=== PATIENT | male | born 1955 | race Two or more races ===

== ENCOUNTER 2016-12-08 19:06 | Emergency (ER) | payer BC ==
[~2016-12-08] VITALS: Ht 165.1 cm; Wt 65.8 kg
[~2016-12-08 19:06] MED LIST: FLOMAX0.4 MG ORAL; SIMVASTATIN40 MG ORAL; VALIUM5 MG ORAL
[2016-12-08 19:37] VITALS: BP 167/91
[2016-12-08] MEDS ORDERED: Bacitracin Oint UD TOPIC ONE ×2 (21:29→21:30)
--- NOTE | 2016-12-08 21:33 | Emergency Room Report ---
History of Present Illness General Chief Complaint: Laceration Present Illness HPI 61-year-old male presents emergency department complaining of laceration to the left forearm x2 hours. Patient states that he was at home just finishing dinner when he reached across the table and actually knocked over a wine bottle that had a sharp edge that cut him. Patient denies taking blood thinning medications. Patient does not recall whether the glass bottle had small fragments when it broke. Patient states he is up-to-date with tetanus vaccinations. he reports mild pain 4/10 in severity in the left forearm exacerbated upon pressure to the area the laceration. Patient reports that the laceration has been continuing to bleed. Denies numbness tingling or loss of sensation or gross motor movements of the extremities, incontinence of bowel or bladder. Denies CP, Palpitations, LOC, AMS, dizziness, Changes in Vision, Sensation, paresthesias, or a sudden severe headache. (Eloina Aragon P.A.) Allergies: Coded Allergies: ACETAMINOPHEN (Verified Adverse Reaction, Intermediate, vomiting, 07/25/14) HYDROCODONE (Verified Adverse Reaction, Intermediate, vomiting, 07/25/14) Patient History Past Medical History: see triage record Past Surgical History: none Pertinent Family History: none Immunizations: UTD Reviewed Nursing Documentation: PMH: Agreed, PSxH: Agreed (Eloina Aragon P.A.) Nursing Documentation-PMH Hx Cancer: No Hx Gastrointestinal Problems: Yes - Upper GI hernia Hx Neurological Problems: Yes Hx Vertigo: Yes (Eloina Aragon P.A.) Review of Systems All Other Systems: negative except mentioned in HPI (Eloina Aragon P.A.) Physical Exam Vital Signs Date Time Temp Pulse Resp B/P Pulse Ox O2 Delivery O2 Flow Rate FiO2 12/08/16 19:11 98.1 73 16 167/91 97 Room Air Sp02 EP Interpretation: reviewed, normal General Appearance: no apparent distress, alert, GCS 15, non-toxic Head: normocephalic, atraumatic Eyes: bilateral eye PERRL, bilateral eye normal inspection ENT: hearing grossly normal, normal pharynx, no angioedema, normal voice Neck: full range of motion, supple/symm/no masses Respiratory: chest non-tender, lungs clear, normal breath sounds, speaking full sentences Cardiovascular #1: regular rate, rhythm, no edema Cardiovascular #2: 2+ radial (R), 2+ radial (L) Musculoskeletal: back normal, gait/station normal, normal range of motion, no calf tenderness, tender - TTP to the area about the laceration. pt. has equal house principal strength, pt. is NVI to the left upper extremity. Neurologic: alert, oriented x3, responsive, motor strength/tone normal, sensory intact, speech normal Psychiatric: judgement/insight normal, memory normal, mood/affect normal, no suicidal/homicidal ideation Skin: normal color, no rash, warm/dry, well hydrated, laceration - 9cm deep laceration of the medial/posterior left forearm. Lymphatic: no adenopathy (Eloina Aragon) Procedures Splinting Splinting : Consent: Verbal Location: left arm Splint: poserior short Pre-Proc Neuro Vasc Exam: normal Post-Proc Neuro Vasc Exam: normal Patient Tolerated: Well Complications: None Progress pt. also placed into sling. (Eloina Aragon) Laceration/Wound Repair Laceration/Wound Repair : Consent: Verbal Wound Location: upper extremity - left forearm Wound's Depth, Shape: stellate Wound Length (cm): 9 Wound Explored: clean Irrigated w/ Saline (ccs): 200 Betadine Prep?: No Anesthesia: Lidocaine w/ Epi Volume Anesthetic (ccs): 10 Wound Debrided: minimal Wound Repaired With: sutures Suture Size/Type: 5:0 Number of Sutures: 8 Layer Closure?: Yes Deep Layer Suture Size/Type: 5:0, gut - fast absorbing plain gut Number Deep Layer Sutures: 5 Sterile Dressing Applied?: Yes Splint Applied?: Yes - Yes, applied to ensure suture stability. Type of Splint Applied: Short arm posterior with sling. Sling Applied?: Yes Patient Tolerated: Well Complications: None (Eloina Aragon P.ARobin) Medical Decision Making PA Attestation Dr. Bhatti is my supervising Physician whom patient management has been discussed with. (Eloina Aragon PWilder) Diagnostic Impression: Primary Impression: Laceration ER Course Pt. presents to the ED c/o laceration to left forearm x 1 day. Ddx considered but are not limited to laceration, tendon injury, cellulitis, amputation, foreign body Vital signs: are WNL, pt. is afebrile H&PE are most consistent with: forearm laceration approx 9 cm in length ORDERS: -X-ray Left Forearm 2 views: No fracture, dislocation, foreign body or soft tissue injury per soft read in the ED by Dr. Bhatti ED INTERVENTIONS: - The wound was copiously irrigated with normal saline, and explored for foreign body for which no FB was found. - pt. is anesthetized with 1%lidocaine w. epi. approximately 10cc's were used - 5 deep subcutaneous sutures ( 5.0 fast dissolving plain gut) were used to approximate the underlying subcutaneous fat, and for hemostasis of the open wound. - The exterior of the wound was approximated and closed using 8 Horizontal mattress sutures ( 5.0 Prolene sutures) -Bacitracin is applied. - Sterile dressing applied - Short arm posterior Splint applied by turfgrass technician. Pt. remains neurovascularly intact. -Discussed with patient: That we make every effort to approximate the laceration as best as we can so that scarring will be as cosmetically pleasing as possible with our limited cosmetic skill set in the Emergency dept. Regardless of our best efforts there will be scarring after laceration repair. The extent of scarring is unknown at this time. -D/w pt. that he may be able to palpate the deep sutures for sometime after the wound has healed, also d/w pt. that he may experience some paresthesia about the area of the laceration as often times sensory nerves in the superficial skin have been lacerated as well. - d/w pt. proper follow up. to keep the splint on for 10 days and to return for suture removal or to his PCP. -d/w pt. Signs and Symptoms that would indicate possible infection and to return promptly to the ED if they arise. -will d/c pt. on PO abx. DISCHARGE: At this time pt. is stable for d/c to home. Will provide printed patient care instructions, and any necessary prescriptions. Care plan and follow up instructions have been discussed with the patient prior to discharge. (Eloina Aragon) ER Course Scribe documentation reviewed by me and is accurate. (Javed Bhatti M.D.) Last Vital Signs Date Time Temp Pulse Resp B/P Pulse Ox O2 Delivery O2 Flow Rate FiO2 12/08/16 20:35 98.1 12/08/16 19:37 80 16 167/91 97 Room Air (Eloina rAagon) Disposition: HOME, SELF-CARE Condition: Stable Scripts Cephalexin* (KEFLEX*) 500 Mg Capsule 500 MG ORAL EVERY 12 HOURS for 7 Days, #14 CAP 0 Refills Prov: Eloina Aragon 12/08/16 Referrals: NOT CHOSEN IPA/,REFERRING (PCP) Patient Instructions: Laceration Care, Adult Additional Instructions: Take medications as directed. Follow up with PCP in 3-5 days Return sooner to ED if new symptoms occur, or current symptoms become worse. Eloina Aragon Dec 08, 2016 21:33 Javed Bhatti M.D. Dec 09, 2016 08:08
[2016-12-08] MEDS ORDERED: CEPHALEXIN500 MG ORAL (21:34)
[2016-12-08 22:03] VITALS: BP 150/87
--- NOTE | 2016-12-09 12:16 | Diagnostic Imaging Report ---
Indication: Pain Findings: 2 views of the left forearm were obtained. No acute fractures, malalignment, erosions or periostitis are identified. Bone mineralization is within normal limits. Soft tissues are unremarkable. Impression: Negative examination of the forearm.
== END 2016-12-08 22:24 | disposition home or self-care (01) ==
LOC: EMR 19:55
DX: S51.812A Laceration without foreign body of left forearm, initial encounter (principal); W25.XXXA Contact with sharp glass, initial encounter; Y92.019 Unspecified place in single-family (private) house as the place of occurrence of the external cause; Z88.6 Allergy status to analgesic agent
CPT/HCPCS: 29125

== ENCOUNTER 2018-05-10 13:24 | Outpatient (CLI) | payer MEDICARE, MEDICAID ==
[~2018-05-10 13:24] MED LIST changes: +CEPHALEXIN500 MG ORAL
[2018-05-10 14:31] VITALS: BP 103/66
[2018-05-10] MEDS ORDERED: OMEPRAZOLE40 M1 ORAL (14:34)
--- NOTE | 2018-05-11 09:55 | GI Initial Consult Note ---
History of Present Illness General Date patient seen: May 10, 2018 Time patient seen: 09:40 Referring physician: JEANIE Reason for Consultation: Colonoscopy Present Illness HPI 63 year old male referred by Dr. Ta for routine colonoscopy. The patient presents today with GERD. Denies any N/V/D. Last colonoscopy in 2013. Denies any unintentional weight loss or changes in dietary habits. Denies any unintentional weight loss or changes in dietary habits. No signs of abuse or neglect. Patient is not fall risk. Home Meds Reported Medications Omeprazole (OMEPRAZOLE) 40 Mg Capsule.dr, 40 MG ORAL DAILY, CAP 05/10/18 Simvastatin (ZOCOR) 40 Mg Tablet, 40 MG ORAL BEDTIME, TAB 07/25/14 Discontinued Reported Medications Diazepam* (VALIUM*) 5 Mg Tablet, 5 MG ORAL DAILY PRN for For Anxiety, #30 TAB 0 Refills 07/25/14 Tamsulosin HCl (Flomax) 0.4 Mg Cap, 0.4 MG ORAL DAILY, CAP 07/25/14 Discontinued Scripts Cephalexin* (KEFLEX*) 500 Mg Capsule, 500 MG ORAL EVERY 12 HOURS for 7 Days, # 14 CAP 0 Refills Prov:Eloina Aragon 12/08/16 Med list reviewed/reconciled: Yes Allergies: Coded Allergies: ACETAMINOPHEN (Verified Adverse Reaction, Intermediate, vomiting, 07/25/14) HYDROCODONE (Verified Adverse Reaction, Intermediate, vomiting, 07/25/14) Patient History PMH Narrative GERD HH Cholesterol Past Surgical History: 2004 umbilical hernia Pertinent Family History: none Social History: Denies: smoking, alcohol use, drug use, other Review of Systems All Other Systems: negative except mentioned in HPI Physical Exam Vital Signs Date Time Temp Pulse Resp B/P (MAP) Pulse Ox O2 Delivery O2 Flow Rate FiO2 05/10/18 14:31 97.8 57 16 103/66 95 97.8 Sp02 EP Interpretation: reviewed, normal General Appearance: well appearing, no apparent distress, alert Head: normocephalic EENT: PERRL/EOMI, normal ENT inspection Neck: supple Respiratory: normal breath sounds, no respiratory distress Cardiovascular: normal rate Gastrointestinal: normal inspection, non tender, soft, normal bowel sounds, non -distended Rectal: deferred Genitourinary: deferred Musculoskeletal: normal inspection, back normal Neurologic: normal inspection, alert, oriented x3, responsive Psychiatric: normal inspection, judgement/insight normal, memory normal Skin: normal inspection, normal color, no rash, warm/dry, palpation normal, well hydrated Lymphatic: normal inspection, no adenopathy GI: Plan Problems: (1) GERD (gastroesophageal reflux disease) (2) Hiatal hernia (3) HLD (hyperlipidemia) Plan Colonoscopy scheduled 05/14/18. - CLD & (Nulytely/Suprep/Movi-Prep) prep instructions given and acknowledged by patient. - NPO @ ID day prior procedure explained. Discussed with Dr. Chawla. Thank you for this patient referral, we will follow. The patient was seen and examined at bedside and all new and available data was reviewed in the patients chart. I agree with the above findings, impression and plan. (Patient seen earlier today. Signature stamp does not reflect patient encounter time.). - MD Lynnette CarmonaVilma-Rome LABOR GANG SUPERVISOR May 11, 2018 09:55
== END 2018-05-10 13:58 | disposition home or self-care (01) ==
LOC: PAN 13:24
DX: K21.9 Gastro-esophageal reflux disease without esophagitis (principal); K44.9 Diaphragmatic hernia without obstruction or gangrene; E78.5 Hyperlipidemia, unspecified; Z88.6 Allergy status to analgesic agent
CPT/HCPCS: 99212

== ENCOUNTER 2018-06-19 08:58 | Outpatient (CLI) | payer MEDICARE, MEDICAID ==
[~2018-06-19 08:58] MED LIST changes: +OMEPRAZOLE40 M1 ORAL
[2018-06-19 09:08] VITALS: BP 103/64
--- NOTE | 2018-06-19 09:25 | GI Progress Note ---
Assessment/Plan Problems: (1) Gastritis ICD Codes: K29.70 - Gastritis, unspecified, without bleeding SNOMED: 3020545 (2) Hemorrhoid ICD Codes: K64.9 - Unspecified hemorrhoids SNOMED: 30328212 (3) Esophageal lesion ICD Codes: K22.9 - Disease of esophagus, unspecified SNOMED: 710875061 (4) GERD (gastroesophageal reflux disease) ICD Codes: K21.9 - Gastro-esophageal reflux disease without esophagitis SNOMED: 531793820 (5) Hiatal hernia ICD Codes: K44.9 - Diaphragmatic hernia without obstruction or gangrene SNOMED: 27102197 (6) HLD (hyperlipidemia) ICD Codes: E78.5 - Hyperlipidemia, unspecified SNOMED: 23083525 (7) Diverticulosis ICD Codes: K57.90 - Diverticulosis of intestine, part unspecified, without perforation or abscess without bleeding SNOMED: 178868137 Status: stable Status Narrative Seen with Dr. Chawla. Assessment/Plan SUMMARY FINDINGS reviewed with patient: 1. Gastritis. 2. Esophageal lesion status post biopsy. 3. Two colonic polyps removed. 4. Diverticulosis. 5. Internal hemorrhoids. RECOMMENDATIONS: Follow up biopsies and treat accordingly. >> negative RTC prn We recommend repeat colonoscopy in 5 years if the biopsies are none important. The patient was seen and examined at bedside and all new and available data was reviewed in the patients chart. I agree with the above findings, impression and plan. (Patient seen earlier today. Signature stamp does not reflect patient encounter time.). - Kory Chawla MD Subjective Gastrointestinal/Abdominal: Reports: no symptoms Objective Last 24 Hour Vital Signs Date Time Temp Pulse Resp B/P (MAP) Pulse Ox O2 Delivery O2 Flow Rate FiO2 06/19/18 09:08 97.9 48 16 103/64 96 97.9 General Appearance: WD/WN, no apparent distress, alert Cardiovascular: normal rate Respiratory/Chest: normal breath sounds, no respiratory distress Abdominal Exam: normal bowel sounds, non tender, soft Extremities: normal range of motion, non-tender [employer] HORSE TRAINER Jun 19, 2018 09:25
== END 2018-06-19 09:32 | disposition home or self-care (01) ==
LOC: PAN 08:58
DX: K29.70 Gastritis, unspecified, without bleeding (principal); K64.9 Unspecified hemorrhoids; K22.9 Disease of esophagus, unspecified; K21.9 Gastro-esophageal reflux disease without esophagitis; K44.9 Diaphragmatic hernia without obstruction or gangrene; E78.5 Hyperlipidemia, unspecified; K57.90 Diverticulosis of intestine, part unspecified, without perforation or abscess without bleeding
CPT/HCPCS: 99211

== ENCOUNTER 2018-12-02 06:25 | Emergency (ER) | payer MEDICARE, MEDICAID ==
[~2018-12-02] VITALS: Ht 165.1 cm; Wt 63.5 kg
--- NOTE | 2018-12-02 06:53 | NUR ---
ED Nurse Note: Pt ambulated to the ED with c/o cough,sore throat, body ache and generalized weakness x1 day. Pt is AO x 4times, VSS, on room air no distress. SAMUELD seen Pt at bedside.
[2018-12-02 06:54] VITALS: BP 113/71
[2018-12-02] MEDS ORDERED: ZITHROMAX250 MG ORAL (06:57)
--- NOTE | 2018-12-02 07:02 | Emergency Room Report ---
History of Present Illness General Chief Complaint: Generalized Weakness Source: Patient Present Illness HPI Patient presents emergency department today complaining of generalized weakness. Patient complains of generalized coughing for the last couple days associated with with sinus congestion and sore throat. Patient states that he has a weak immune system but cannot tell me why. Patient denies history of cancer. States that he gets sick like this in the antibiotics. Denies any fever or shortness breath. Denies any chest pain leg pain leg swelling. Symptoms noted to be moderate. Patient states he coughed all might that he cannot sleep.No other modifying factors. No other associated signs and symptoms. No other complaints were noted. Allergies: Coded Allergies: ACETAMINOPHEN (Verified Adverse Reaction, Intermediate, vomiting, 07/25/14) HYDROCODONE (Verified Adverse Reaction, Intermediate, vomiting, 07/25/14) Patient History Past Medical History: HTN, CAD Past Surgical History: none Pertinent Family History: none Social History: Denies: smoking, alcohol use, drug use Reviewed Nursing Documentation: PMH: Agreed; PSxH: Agreed Nursing Documentation-PMH Past Medical History: No Stated History Hx Cardiac Problems: Yes Hx Hypertension: Yes Hx Cancer: No Hx Gastrointestinal Problems: Yes Hx Neurological Problems: Yes Hx Vertigo: Yes Review of Systems All Other Systems: negative except mentioned in HPI Physical Exam Vital Signs Date Time Temp Pulse Resp B/P (MAP) Pulse Ox O2 Delivery O2 Flow Rate FiO2 12/02/18 06:40 97.9 65 14 113/71 96 Room Air Sp02 EP Interpretation: reviewed, normal General Appearance: normal inspection, well appearing, no apparent distress, alert Head: atraumatic Eyes: bilateral eye normal inspection ENT: normal ENT inspection, hearing grossly normal, normal voice Neck: normal inspection, full range of motion, supple, no bony tend Respiratory: normal inspection, lungs clear, normal breath sounds, no respiratory distress, no retraction, no wheezing Cardiovascular #1: regular rate, rhythm, no edema Gastrointestinal: normal inspection, normal bowel sounds, non tender, soft, no guarding, no hernia Genitourinary: no CVA tenderness Musculoskeletal: normal inspection, back normal, normal range of motion Neurologic: normal inspection, alert, responsive, speech normal Psychiatric: normal inspection, judgement/insight normal, mood/affect normal Skin: normal inspection, normal color, no rash Medical Decision Making Diagnostic Impression: Primary Impression: Cough ER Course Patient presents emergency department today complaining of cough congestion. Differential considerations include pharyngitis, viral syndrome, bronchitis, pneumonia just name a few. Patient's exam is fairly benign. Given patient's presentation I felt the patient would benefit from some rest. Patient however requested antibiotics. I advised that I will provide a prescription for antibiotics but advised the patient not take it for the next 48 hours. If he does not improve in 48 hours taken at that time. Patient voiced understanding.Patient is advised to follow up with primary doctor in 2-3 days and return the emergency room for any worsening symptoms and as needed. Last Vital Signs Date Time Temp Pulse Resp B/P (MAP) Pulse Ox O2 Delivery O2 Flow Rate FiO2 12/02/18 06:40 97.9 65 14 113/71 96 Room Air Status: improved Disposition: HOME, SELF-CARE Condition: Stable Scripts Azithromycin* (ZITHROMAX*) 250 Mg Tablet 250 MG ORAL DAILY, #6 TAB 0 Refills Take two tables once daily for 1 day, then one tablet once daily for 4 days. Prov: Michoacano Wheatley MD 12/02/18 Patient Instructions: Acute Bronchitis, [id number] Michoacano Wheatley MD Dec 02, 2018 07:02
[2018-12-02 07:03] VITALS: BP 113/71
--- NOTE | 2018-12-02 07:04 | NUR ---
ED Nurse Note: Pt cleared DC by YOHANA. Pt is AO x 4times, VSS, on room air no distress. Belongings given to Pt. ID bend removed. DC and meds instructions given to Pt, Pt understood well. Pt walked out unit with steady gait.
== END 2018-12-02 07:03 | disposition home or self-care (01) ==
LOC: EMR 06:53
DX: R05 Cough (principal); Z88.6 Allergy status to analgesic agent; R53.1 Weakness; I10 Essential (primary) hypertension
CPT/HCPCS: 99282